=== PATIENT | female | born 1990 | race Caucasian/White ===

== ENCOUNTER 2016-08-11 22:18 | Emergency (ER) ==
[2016-08-11 22:20] VITALS: BMI 19.5
[2016-08-11] MEDS ORDERED: TENIVAC IM ONE (22:31)
[2016-08-11 22:32] LABS: BASOPHILS % (AUTO) 0.4 % (0.0-3.0); EOSINOPHILS # (AUTO) 0.3 K/ul (0.0-0.7); EOSINOPHILS % (AUTO) 3.6 % (0.0-7.0); HEMATOCRIT 42.3 % (37.0-47.0); HEMOGLOBIN 14.9 g/dl (12.0-16.0); IMMATURE GRANULOCYTE % (AUTO) 0.4 % (0.0-5.0); LYMPHOCYTES # (AUTO) 2.8 K/uL (0.60-3.4); MEAN CORPUSCULAR HEMOGLOBIN 35.6 pg (27.0-31.0); MEAN CORPUSCULAR HGB CONC 35.2 (31.8-35.4); MEAN CORPUSCULAR VOLUME 101.2 fl (81.0-99.0); MONOCYTES # (AUTO) 0.5 K/uL (0.4-2.0); MONOCYTES % (AUTO) 6.7 (0-10); NEUTROPHILS # (AUTO) 4.5 K/ul (2.0-6.9); NEUTROPHILS % (AUTO) 54.9; PLATELET COUNT 254 10^3/uL (140-440); RED BLOOD COUNT 4.18 10^6/ul (4.20-5.40); WHITE BLOOD COUNT 8.11 K/ul (4.6-10.2)
--- NOTE | 2016-08-11 22:43 | ED.PDOC ---
General Stated Complaint: brought in by police for suicidal ideation==asking for gun on social media--friends said she was threatening to harm herself Time Seen by Physician: 22:41 Mode of Arrival: Police Information Source: Patient Exam Limitations: No limitations Nursing and Triage Documentation Reviewed and Agree: Yes <GRAHAM GRUBER - Last Filed: 08/11/16 22:41> <NATALIE PULIDO - Last Filed: 08/12/16 11:28> ED Provider: Dr. NATALIE PULIDO Chief Complaint: Psychiatric Complaint Psychological Complaint Exam - Psychiatric Complaint/Exam Patient Complains Of: Present: Depression, Suicidal thoughts Onset/Duration: several days Symptoms Are: Still present Timing: Constant Episodes Lasting: Seconds Initial Severity: Mild Current Severity: Moderate Character: Present: Depressed, Frustrated Aggravating: Reports: Recent stress Associated Signs And Symptoms: Denies: Hostile, Confused, Hallucinating, Paranoid behavior, Sleep disturbance, Appetite change Related History: Reports: Suicidal thoughts, Suicidal gestures Completed Suicide Risk Factors: None Patient Accompanied By: Police Patient In Custody Of Police: No Social Withdrawal Present: No Social Isolation Present: No Prior Suicide Attempt: No Injury From Prior Suicide Attempt: No Related Surgical History: Reports: None Patient Uncooperative For Exam: No Mood: Present: Depressed Appearance: Present: Clean Thought Process: Present: Logical Insight: Present: Poor Memory: Intact Judgement: Normal Danger To Others: No Patient Medically Stable For: Psych evaluation, Referral, Transfer Differential Diagnoses: Depression, Suicidal Ideation <ALLYNGRAHAM Filed: 08/11/16 22:41> Review of Systems - Review Of Systems Constitutional: Reports: No symptoms Eyes: Reports: No symptoms Ears, Nose, Mouth, Throat: Reports: No symptoms Respiratory: Reports: No symptoms Cardiac: Reports: No symptoms GI: Reports: No symptoms : Reports: No symptoms Musculoskeletal: Reports: No symptoms Skin: Reports: No symptoms Neurological: Reports: No symptoms Endocrine: Reports: No symptoms Hematologic/Lymphatic: Reports: No symptoms All Other Systems: Reviewed and Negative <ALLYNGRAHAM - Last Filed: 08/11/16 22:41> Past Medical History - Past Medical History Previously Healthy: Yes Endocrine: Reports: None Cardiovascular: Reports: None Respiratory: Reports: None Hematological: Reports: None Gastrointestinal: Reports: None Genitourinary: Reports: None Neuro/Psych: Reports: None Musculoskeletal: Reports: None Cancer: Reports: None - Surgical History General Surgical History: Reports: Unknown - Family History Family History: Reports: Unknown - Social History Smoking Status: Current every day smoker, Heavy tobacco smoker Hx Substance Use: No Alcohol Screening: Occasionally Lives: With family <ALLYNGRAHAM - Last Filed: 08/11/16 22:41> Physical Exam - Physical Exam Appearance: Well-appearing, No pain distress, Well-nourished Eyes: PORSHA, EOMI, Conjunctiva clear ENT: Ears normal Neck: Supple Respiratory: Airway patent Cardiovascular: RRR, Pulses normal, No rub, No murmur GI/: Soft, Nontender, No masses, Bowel sounds normal, No Organomegaly Musculoskeletal: Normal strength Skin: Warm, Dry, Normal color Neurological: Sensation intact, Motor intact, Reflexes intact, Cranial nerves intact, Alert, Oriented Psychiatric: Affect appropriate, Mood appropriate, Depressed <ALLYNGRAHAM - Last Filed: 08/11/16 22:41> Critical Care Note - Critical Care Note Total Time (mins): 0 <NATALIE PULIDO - Last Filed: 08/12/16 11:28> Course - Course Hematology/Chemistry: 08/11/16 22:31 <ALLYNGRAHAM - Last Filed: 08/11/16 22:41> - Course Hematology/Chemistry: 08/11/16 22:31 08/11/16 22:31 <NATALIE UPLIDO - Last Filed: 08/12/16 11:28> - Course Orders, Labs, Meds: Lab Review 08/11/16 08/12/16 22:31 00:45 WBC 8.11 RBC 4.18 L Hgb 14.9 Hct 42.3 MCV 101.2 H MCH 35.6 H MCHC 35.2 RDW Coeff of Ketan 12.1 Plt Count 254 Immature Gran % (Auto) 0.4 Neut % (Auto) 54.9 Lymph % (Auto) 34.0 [place] % (Auto) 6.7 Eos % (Auto) 3.6 Baso % (Auto) 0.4 Immature Gran # (Auto) 0.0 Neut # 4.5 Lymph # 2.8 [facility] # 0.5 Eos # 0.3 Baso # 0.0 Sodium 142 Potassium 3.3 L Chloride 104 Carbon Dioxide 27 Anion Gap 14.3 BUN 7 Creatinine 0.84 Estimated GFR (MDRD) 81.00 BUN/Creatinine Ratio 8.33 Glucose 95 Calcium 10.1 Total Bilirubin 0.78 AST 15 ALT 9 L Alkaline Phosphatase 59 Total Protein 7.6 Albumin 4.6 Globulin 3.0 Albumin/Globulin Ratio 1.53 TSH 2.767 Serum , Qual Negative Urine Color Dark Urine Clarity Cloudy Urine pH 5.5 Ur Specific [place] 1.025 Urine Protein 1+ Urine Glucose (UA) Negative Urine Ketones Trace Urine Blood Negative Urine Nitrite Positive Urine Bilirubin 1+ Urine Urobilinogen 0.2 Ur Leukocyte Esterase Negative Urine Microscopic WBC 2-5 Ur Squamous Epith Cells 5-10 Urine Bacteria 2+ Salicylate Level mg/dL < 5.0 Urine Opiates Screen Positive Ur Oxycodone Screen Negative Urine Methadone Screen Negative Ur Propoxyphene Screen Negative Acetaminophen < 3 L Ur Barbiturates Screen Negative U Tricyclic Antidepress Negative Ur Phencyclidine Scrn Negative Ur Amphetamine Screen Negative U Methamphetamines Scrn Positive U Benzodiazepines Scrn Positive Urine Cocaine Screen Negative U Cannabinoids Screen Negative Plasma/Serum Alcohol < 10.0 Orders Category Date Time Status Mental Health Consult [ED MENTAL HEALTH CONSULT] .ONCE EMERGENCY 08/11/16 22: 31 Active ACETAMINOPHEN Stat LAB 08/11/16 22:31 Completed BLOOD ALCOHOL Stat LAB 08/11/16 22:31 Completed CBC W/ AUTO DIFF Stat LAB 08/11/16 22:31 Completed COMPREHENSIVE METABOLIC PANEL Stat LAB 08/11/16 22:31 Completed SERUM TEST [SERUM ] Stat LAB 08/11/16 22:31 Completed SALICYLATE Stat LAB 08/11/16 22:31 Completed THYROID STIMULATING HORMONE Stat LAB 08/11/16 22:31 Completed URINALYSIS C & S IF INDICATED Stat LAB 08/12/16 00:45 Completed URINE CULTURE Stat LAB 08/12/16 00:59 Results URINE DRUG SCREEN (RAPID FOR ED) [DRUG SCREEN, URINE, LAB 08/12/16 00:45 Completed RAPID] Stat Tetanus and Diphtheria Tox/Pf [Tenivac] MEDS 08/11/16 22:31 Discontinued 0.5 ml IM .ONCE ONE Medications Discontinued Medications Generic Name Dose Route Start Last Admin Trade Name Freq PRN Reason Stop Dose Admin Tetanus/Diphtheria Toxoids Adsorbed 0.5 ml 08/11/16 22:31 08/11/16 22:52 Tenivac IM 08/11/16 22:32 0.5 ml .ONCE ONE Administration Vital Signs: Temp Pulse Resp BP Pulse Ox 08/11/16 22:23 98.8 F 82 18 118/77 97 Departure <GRAHAM GRUBER - Last Filed: 08/11/16 22:41> - Departure Time of Disposition: 11:26 (SEEN WITH STAFF AT ALL TIMES ) Pt referred to PMD for follow-up: No <NATALIE PULIDO - Last Filed: 08/12/16 11:28> - Departure Disposition: HOME SELF-CARE Discharge Problem: Depression Instructions: Depression (ED) Condition: Good Additional Instructions: Please call your Family Physician as soon as possible to schedule a follow-up appointment. Allergies/Adverse Reactions: Allergies No Known Allergies Allergy (Verified 11/12/15 21:49) Home Medications: Ambulatory Orders 1 [No Reported Medications] 11/12/15 Discharge Problem: Depression Qualifiers: Depression Type: unspecified Qualifier Code: (F32.9) Major depressive disorder , single episode, unspecified
[2016-08-11 22:45] VITALS: BP 118/77; TEMP 98.8
[2016-08-11 22:47] LABS: SERUM PREGNANCY INTERNAL QC INTERNAL QC VALID
[2016-08-11 23:11] LABS: ACETAMINOPHEN < 3 ug/ml (10-30); ALANINE AMINOTRANSFERASE 9 U/L (12-78); ALBUMIN 4.6 g/dL (3.4-5.0); ALBUMIN/GLOBULIN RATIO 1.53; ALKALINE PHOSPHATASE 59 U/L (42-98); ANION GAP 14.3; ASPARTATE AMINO TRANSFERASE 15 U/L (15-37); BILIRUBIN,TOTAL 0.78 mg/dL (0.00-1.20); BLOOD UREA NITROGEN 7 mg/dL (7-18); BUN/CREATININE RATIO 8.33; CALCIUM 10.1 mg/dL (8.2-10.2); CARBON DIOXIDE 27 mmol/L (21-32); CHLORIDE 104 mmol/L (98-107); CREATININE 0.84 mg/dL (0.60-1.30); GLUCOSE 95 mg/dL (70-110); POTASSIUM 3.3 mmol/L (3.5-5.10); SALICYLATE < 5.0 mg/dL (2.8-20.0); SODIUM 142 mmol/L (136-145); TOTAL PROTEIN 7.6 g/dL (6.4-8.2)
[2016-08-12 00:53] LABS: BILIRUBIN,URINE 1+ (NEGATIVE); KETONES,URINE Trace (NEGATIVE); LEUKOCYTE ESTERASE ,URINE Negative (NEGATIVE); NITRITE,URINE Positive (NEGATIVE); PH,URINE 5.5 (5-9); PROTEIN,URINE 1+ (NEGATIVE); URINE, BLOOD Negative (NEGATIVE)
[2016-08-12 00:58] LABS: ADD URINE MICROSCOPIC YES
[2016-08-12 00:59] LABS: BACTERIA,URINE 2+ (NOT PRESENT)
[2016-08-12 01:02] LABS: COCAIN SCREEN,URINE NEGATIVE (NEGATIVE)
== END 2016-08-12 12:00 | disposition home or self-care (01) ==
LOC: ED 22:18
DX: F32.9 Major depressive disorder, single episode, unspecified (principal); F17.210 Nicotine dependence, cigarettes, uncomplicated
CPT/HCPCS: 36415; 80053; 80306; 80307; 81001; 84443; 84703; 85025; 87086; 87186; 90471; 99283

== ENCOUNTER 2018-04-16 09:06 | Outpatient (CLI) ==
--- NOTE | 2018-04-17 01:51 | MRI ---
EXAM: MRI lumbar spine without IV contrast. DATE: 04/16/2018. HISTORY: Lumbar back pain. Scoliosis. TECHNIQUE: Sagittal and axial T1W and T2W sequences of the lumbar spine along with sagittal IR and c oronal T2W sequences were obtained using 1.2 Renetta magnet. No IV contrast. COMPARISON: LS spine series [address] chest/abdomen/pelvis 29 Jul 2014. FINDINGS: There are six [id number] lumbar vertebra. Previous CT chest/abdomen/pelvis demonstra wilian 12 thoracic vertebra with paired ribs and six [id number] lumbar vertebra. Moderate leftward curvature of the lower thoracic and lumbar spine is present, with the apex of curva ture at L1-2. No acute lumbar fracture, subluxation, osseous malignancy, or pars interarticularis de fect is demonstrated. Lumbar vertebra are normal in height. T2W/T1W bright, 6 mm focus in the S1 ve rtebral body is consistent with a benign hemangioma. Bone marrow signal is normal. Intervertebral d iscs are normal in height and signal. No acute sacral fracture or stress reaction is demonstrated. SI joints are unremarkable. Conus medullaris terminates at T12-L1. Visible spinal cord is normal. No retroperitoneal lymphadenopathy, paraspinal mass, or aortic aneurysm is detected. Paraspinal musc ulature is symmetric bilaterally. Visible portions of the liver, gallbladder, spleen, pancreas, adre nal glands and kidneys reveal no distinct abnormality. No bowel obstruction or malignancy is evident . A T2W bright, 18 x 27 mm focus in the left adnexa likely represents a left ovarian cyst. Small, n ormal follicles are displayed in each ovary. No suspicious uterine neoplasm or endometrial abnormali ty is demonstrated. Segmental analysis: T12-L1: Normal. L1-2: Normal. L2-3: Normal. L3-4: Normal. L4-5: Normal. L5-6: Minor posterior to foraminal disc bulge causes minor right and mild left foraminal stenoses. No central canal stenosis. L6-S1: Normal. IMPRESSIONS: 1. Six zvg-[id number] lumbar vertebra. 2. Moderate thoracolumbar rotatory levoscoliosis. 3. L5-6 moderate disc bulge causes minor right and mild left foraminal narrowing. No nerve root com pression. 4. Benign hemangioma in the S1 vertebral body. 5. Left ovarian cyst. If symptoms warrant further evaluation, follow-up pelvic ultrasound is recomm ended.
== END 2018-04-16 09:07 | disposition home or self-care (01) ==
LOC: RAD 09:06
PROVIDERS: ATTEND Nurse Practitioner
DX: M41.9 Scoliosis, unspecified (principal)

== ENCOUNTER 2018-04-22 09:45 | Outpatient (CLI) ==
--- NOTE | 2018-04-23 08:31 | MRI ---
EXAM: MRI thoracic spine without IV contrast. DATE: 22 April 2018. HISTORY: Thoracolumbar scoliosis. TECHNIQUE: Sagittal T2W, sagittal T1W, sagittal IR, coronal T2W, axial T1W, axial T2W sequences of t he thoracic spine were obtained using 1.2 Renetta magnet. No IV contrast. COMPARISON: MRI lumbar spine 04/16/2018. Thoracic spine series 23 November 2012. FINDINGS: Sagittal counting steward/stewardess third sequence of the cervical spine reveals no acute c-spine fracture, subluxation, osseous malignancy, or jumped facet. Cervical vertebra are normal in height. Bone kassi ow signal is overall normal. Intervertebral discs are normal in height. No large disc protrusion, d efinitive central canal stenosis, cord compression, cord neoplasm or syrinx is detected. Visible bra instem and cerebellum are unremarkable. Left thyroid lobe T2W primarily bright, 11.4 x 8.8 x 11.7 mm focus is observed. No cervical lymphadenopathy is apparent. There are 12 thoracic vertebra with paired ribs. Mild S-shaped thoracolumbar scoliosis is evident. No acute T-spine fracture, subluxation, osseous malignancy, or jumped facet is demonstrated. Thoraci c vertebra are normal in height. Tiny, chronic Schmorl's nodes are seen at T7, T8, and T9. Interver tebral discs are normal in height. Conus medullaris terminates at L1 superior endplate. No distinct cord edema, syrinx, myelomalacia, or neoplasm is identified. Trachea, thoracic esophagus, mediastinum, thoracic aorta are unremarkable. No pneumonia, lung mass, pleural effusion, or hilar lymphadenopathy is displayed. Visible portions of the liver, spleen, adre nal glands and kidneys reveals no distinct abnormality. Segmental analysis: C6-7: Normal. C7-T1: Normal. T1-2: Normal. T2-3: Normal. T3-4: Normal. T4-5: Normal. T5-6: Normal. T6-7: Normal. T7-8: Normal. T8-9: Normal. T9-10: Normal. T10-11: Normal, except for minor left facet arthropathy. T11-12: Normal, except for minor left facet arthropathy. IMPRESSIONS: 1. Thoracic spine mild S-shaped scoliosis and minor facet arthropathy. 2. No thoracic disc protrusion, cord compression, central stenosis or foraminal stenosis. 3. Tiny, chronic Schmorl's nodes at T7, T8, T9. 4. Left thyroid lobe nodule - likely a cyst, but not fully characterized. Recommend US.
== END 2018-04-22 09:46 | disposition home or self-care (01) ==
LOC: RAD 09:45
PROVIDERS: ATTEND Nurse Practitioner
DX: M41.9 Scoliosis, unspecified (principal)